=== PATIENT | female | born 1970 | race African-American/Black ===

== ENCOUNTER 2018-08-08 14:09 | Inpatient (IN) | payer OTHER ==
[2018-08-08 17:15] VITALS: BMI 41.0
--- NOTE | 2018-08-08 17:25 | HP ---
CIWA Score Nausea/Vomitin-Mild Nausea/No Vomiting Muscle Tremors: 1-None Visible, but [place] Anxiety: 3 Agitation: 4-Moderately Restless Paroxysmal Sweats: 1-Minimal Palms Moist Orientation: 0-Oriented Tacttile Disturbances: 0-None Auditory Disturbances: 0-None Visual Disturbances: 2-Mild Sensitivity Headache: 1-Very Mild CIWA-Ar Total Score: 13 - Admission Criteria OASAS Guidelines: Admission for Medically Managed Detox: Requires at least one of the followin. CIWA greater than 12 2. Seizures within the past 24 hours 3. Delirium tremens within the past 24 hours 4. Hallucinations within the past 24 hours 5. Acute intervention needed for co occurring medical disorder 6. Acute intervention needed for co occurring psychiatric disorder 7. Severe withdrawal that cannot be handled at a lower level of care (continued vomiting, continued diarrhea, abnormal vital signs) requiring intravenous medication and/or fluids 8. Admission ROS [facility] Allergies/Adverse Reactions: Allergies Allergy/AdvReac Type Severity Reaction Status Date / Time ibuprofen [From Motrin] AdvReac Verified 08/08/18 18:19 ketorolac [From Toradol] AdvReac Verified 08/08/18 18:19 shellfish derived AdvReac Verified 08/08/18 18:19 strawberry AdvReac Verified 08/08/18 18:19 History of Present Illness: patient here requesting detox from etoh use , reports 1 case of beer/day x 1 month , prior 6-year sobriety , reports relapse after " stress " , reports diarrhea and tremors if not drinking , abdominal cramps , loss of appetite, latest use this morning , starts drinking upon awakening , + blackouts in the past , denies seizures, denies falls . first age of use 15 , prior detox many years ago pt also claoms heroin use " morphine pills , claims 1 bag occasionally utox + thc, cocaine , bar cocaine : daily x 3 weeks , " people just give it to me " cannabis use : daily since age 14 tobacco : 09/01 ppd , does not want nrt pmhx : asthma since childhood ( [place], [place] ) , htn , heart murmur since childhood pshx : tonsillectomy , lap ovarian cyst , left knee surgery ACL/ MCL and meniscal tear 2013 after injury fall down stairs psych : bipolar d/o , depression meds : thinks Haldol , did not bring any lmp 1 mo ago upt neg [place]i 0.000 SHx : lives alone , 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 on parole x 1 year for assault meds : verified with [facility] [phone] latest filled 07/18/18 Amlodipine 10 mg qd , Lisinopril 20 mg q d . Exam Limitations: No Limitations - Ebola screening Have you traveled outside of the country in the last 21 days: No (N) Have you had contact with anyone from an Ebola affected area: No Have you been sick,other than usual withdrawal symptoms: No Do you have a fever: No - Review of Systems Constitutional: See HPI EENT: reports: Other (glasses) Respiratory: reports: No Symptoms reported Cardiac: reports: No Symptoms Reported GI: reports: No Symptoms Reported : reports: No Symptoms Reported Musculoskeletal: reports: Back Pain, Joint Pain Integumentary: reports: No Symptoms Reported Neuro: reports: Headache Endocrine: reports: No Symptoms Reported Psychiatric: reports: Orientated x3 ( bipolar d/o , manic depressive) Patient History - Smoking Cessation Smoking history: Current every day smoker Have you smoked in the past 12 months: Yes Aproximately how many cigarettes per day: 5 Hx Chewing Tobacco Use: No Initiated information on smoking cessation: No - Substances Abused Alcohol Route: Oral Frequency: Daily Amount used: 12 CANS OF BEER DAILY Age of first use: 15 Date of Last Use: 08/08/18 Cocaine Route: Smoking Frequency: Daily Amount used: $20 Age of first use: 31 Date of Last Use: 08/07/18 Marijuana/Hashish Route: Smoking Frequency: Daily Amount used: $50-$60 Age of first use: 14 Date of Last Use: 08/08/18 Family Disease History - Family Disease History Family Disease History: Other: Father (deported ), Mother (d. murdered) Other Family History: aunt- sarcoidosis Admission Physical Exam S - Vital Signs Vital Signs: Vital Signs - 24 hr 08/08/18 17:11 Temperature 98.0 F Pulse Rate 95 H Respiratory 19 Rate Blood Pressure 123/69 - Physical General Appearance: Yes: Mild Distress, Anxious HEENTM: Yes: Hearing grossly Normal, Normocephalic, Normal Voice Respiratory: Yes: Chest Non-Tender, Lungs Clear, Normal Breath Sounds Neck: Yes: No masses,lesions,Nodules, Trachea in good position Breast: Yes: Breast Exam Deferred Cardiology: Yes: Regular Rhythm, Regular Rate, S1, S2 Abdominal: Yes: Non Tender Genitourinary: Yes: Within Normal Limits Back: Yes: Normal Inspection Musculoskeletal: Yes: Gait Steady, Joint Stiffness Extremities: Yes: Normal Capillary Refill Neurological: Yes: Fully Oriented, Motor Strength 5/5 - Diagnostic (1) Alcohol dependence Current Visit: Yes Status: Acute Qualifiers: Substance use status: in withdrawal (2) Nicotine dependence Current Visit: Yes Status: Chronic Qualifiers: Nicotine product type: cigarettes (3) Cocaine dependence Current Visit: Yes Status: Chronic Qualifiers: Substance use status: uncomplicated Qualified Code(s): F14.20 - Cocaine dependence, uncomplicated (4) Cannabis dependence Current Visit: Yes Status: Chronic BHS Breath Alcohol Content Breath Alcohol Content: 0 Urine Pregancy Test - Result Urine Test Results: Negative- NO Line Present Urine Drug Screen - Results Drug Screen Negative: No Urine Drug Screen Results: THC-Marijuana, NAYE-Cocaine, BAR-Barbiturates
[2018-08-08] MEDS ORDERED: chlordiazePOXIDE HCL 25 MG CAPSULE PO PRN (17:40)
[2018-08-08] MEDS ORDERED: MAG HYDROX/AL HYDROX/SIMETH 30 ML UNIT-DOSE CUP PO PRN (17:40)
[2018-08-08] MEDS ORDERED: P-EPHED 60MG/TRIPROLIDI 2.5MG TABLET PO PRN (17:40)
[2018-08-08] MEDS ORDERED: MAGNESIUM HYDROX 2400MG/30ML ORAL SUSPENSION 30 ML CUP PO PRN (17:40)
[2018-08-08] MEDS ORDERED: guaiFENesin/D-METHORPHAN HB 10 ML UNIT-DOSE CUPS PO PRN (17:40)
[2018-08-08] MEDS ORDERED: LOPERAMIDE HCL 2 MG CAPSULE PO PRN (17:40)
[2018-08-08] MEDS ORDERED: MENTHOL/PHENOL 1 EACH UD MM PRN (17:40)
[2018-08-08] MEDS ORDERED: IBUPROFEN 400 MG TABLET (FP) PO PRN (17:40)
[2018-08-08] MEDS ORDERED: MAGNESIUM CITRATE 300 ML BOTTLE PO PRN (17:40)
[2018-08-08] MEDS ORDERED: ACETAMINOPHEN 325 MG TABLET (FP) PO PRN (17:40)
[2018-08-08] MEDS ORDERED: ALBUTEROL SO4 0.083% IH SOL 2.5 MG/3 ML VIAL.NEB. NEB PRN (18:39)
[2018-08-08] MEDS ORDERED: ALBUTEROL SO4 8 GM HFA INHALER IH PRN (18:39)
[2018-08-08] MEDS ORDERED: AMMONIUM LACTATE 12% LOTION 225 GM BOTTLE TP PRN (20:31)
[2018-08-08] MEDS ORDERED: COLLOIDAL OATMEAL 1 BAR EACH TP PRN (20:35)
[2018-08-08] MEDS ORDERED: MELATONIN 5 MG TABLETS PO PRN (22:00)
[2018-08-08] MEDS: chlordiazePOXIDE HCL 25 MG CAPSULE PO SCH (22:11)
[2018-08-08] MEDS: MINERAL OIL/PETROLAT/WATER TOPICAL CREAM 113 GM JAR TP SCH (22:13)
[2018-08-08] MEDS: THIAMINE HCL 100 MG TABLET (FP) PO SCH (22:13)
[2018-08-09] MEDS: chlordiazePOXIDE HCL 25 MG CAPSULE PO SCH ×4 (05:25→22:30)
--- NOTE | 2018-08-09 07:35 | CONSULT ---
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 Substance Abuse History: Smoking history: Current every day smoker. Have you smoked in the past 12 months: Yes. Aproximately how many cigarettes per day: 5. Hx Chewing Tobacco Use: No. Initiated information on smoking cessation: No. - Substances Abused. Alcohol. Route: Oral. Frequency: Daily. Amount used: 12 CANS OF BEER DAILY. Age of first use: 15. Date of Last Use: . Cocaine. Route: Smoking. Frequency: Daily. Amount used: $20. Age of first use: 31. Date of Last Use: 08/07/18. Marijuana/Hashish. Route: Smoking. Frequency: Daily. Amount used: $50-$60. Age of first use: 14. Date of Last Use: 08/08/18 Medical History: Obesity, heart murmur history, HTN, Asthma, Psychiatric History: Patient reports history of depression and anxiety, reports Bipolar Disorder history, history of suicidal attempts by cutting her forearms, domi applyed reports most recent suicidal attempt on about more then 5 years ago, denies suicidal history since then, currently stable on: Haldol 2mg po qhs. Cogentin 1mg po qhs Physical/Sexual Abuse/Trauma History: Denies Additional Comment: Haldol 2mg po qhs. Cogentin 1mg po qhs Mental Status Exam - Mental Status Exam Alert and Oriented to: Person Cognitive Function: Fair Patient Appearance: Unkempt Mood: Sad Affect: Normal Range Patient Behavior: Cooperative Speech Pattern: Delayed Voice Loudness: Mildly Soft/Quiet Thought Process: Circumstantial, Goal Oriented Thought Disorder: Being Controlled Hallucinations: Denies Suicidal Ideation: Denies Homicidal Ideation: Denies Sleep: Difficulty falling asleep Appetite: Weight gain Muscle strength/Tone: Mild Hypotonicity Gait/Station: Shuffling Additional Comments: Haldol 2mg po qhs. Cogentin 1mg po qhs Psychiatric Findings - Problem List ([place] 1, 2,3) (1) Drug-induced mood disorder Current Visit: Yes Status: Acute (2) Alcohol dependence Current Visit: Yes Status: Acute Qualifiers: Substance use status: in withdrawal (3) Cannabis dependence Current Visit: Yes Status: Chronic (4) Cocaine dependence Current Visit: Yes Status: Chronic Qualifiers: Substance use status: uncomplicated Qualified Code(s): F14.20 - Cocaine dependence, uncomplicated (5) Nicotine dependence Current Visit: Yes Status: Chronic Qualifiers: Nicotine product type: cigarettes - Initial Treatment Plan Initial Treatment Plan: Haldol 2mg po qhs. Cogentin 1mg po qhs
[2018-08-09] MEDS ORDERED: HALOPERIDOL 1 MG TABLET (FP) PO PRN (08:48)
[2018-08-09] MEDS ORDERED: amLODIPine BESYLATE 5 MG TABLET (FP) PO SCH (10:00)
[2018-08-09] MEDS: MINERAL OIL/PETROLAT/WATER TOPICAL CREAM 113 GM JAR TP SCH ×2 (10:52→22:31)
[2018-08-09] MEDS: PRENATAL VITAMINS W/ FOLIC ACID TABLET (FP) PO SCH (10:52)
[2018-08-09] MEDS: LISINOPRIL 20 MG TABLET (FP) PO SCH (10:52)
[2018-08-09] MEDS: amLODIPine BESYLATE 10 MG TABLET (FP) PO SCH (10:52)
[2018-08-09 11:15] LABS: HEMATOCRIT 39.4 % (32.4-45.2); HEMOGLOBIN 12.6 GM/dL (10.7-15.3); MCH 29.8 pg (25.7-33.7); MEAN CELL VOLUME 93.1 fl (80-96); MEAN PLT VOLUME 8.8 fl (7.5-11.1); PLATELET COUNT 232 K/MM3 (134-434); RBC 4.23 M/mm3 (3.60-5.2); RDW 14.4 % (11.6-15.6); WHITE BLOOD COUNT 7.3 K/mm3 (4.0-10.0)
[2018-08-09 11:25] LABS: ALBUMIN 3.3 g/dl (3.4-5.0); ALK PHOS 101 U/L (45-117); ANION GAP 8 MMOL/L (8-16); BILIRUBIN,TOTAL 0.2 mg/dL (0.2-1); BLOOD UREA NITROGEN 5 mg/dL (7-18); CALCIUM 8.4 mg/dL (8.5-10.1); CHLORIDE 105 mmol/L (98-107); CO2 27 mmol/L (21-32); CREATININE 0.9 mg/dL (0.55-1.3); GLUCOSE,RANDOM 85 mg/dL (74-106); POTASSIUM 3.9 mmol/L (3.5-5.1); SGOT/AST 10 U/L (15-37); SGPT/ALT 23 U/L (13-61); SODIUM 140 mmol/L (136-145); TOT PROT 6.4 g/dl (6.4-8.2)
--- NOTE | 2018-08-09 13:44 | PN ---
[facility] CIWA - CIWA Score Nausea/Vomitin-No Nausea/No Vomiting Muscle Tremors: 3 Anxiety: 3 Agitation: 3 Paroxysmal Sweats: 3 Orientation: 0-Oriented Tacttile Disturbances: 0-None Auditory Disturbances: 0-None Visual Disturbances: 0-None Headache: 0-None Present CIWA-Ar Total Score: 12 S Progress Note (SOAP) Subjective: agitation sweats shakes interrupted sleep body aches heart burn Objective: 08/09/18 13:44 Vital Signs Temperature 97.5 F L 08/09/18 13:25 Pulse Rate 81 08/09/18 13:25 Respiratory Rate 18 08/09/18 13:25 Blood Pressure 119/75 08/09/18 13:25 O2 Sat by Pulse Oximetry (%) Laboratory Tests 08/09/18 08/09/18 08/09/18 07:30 07:30 07:30 WBC 7.3 RBC 4.23 Hgb 12.6 Hct 39.4 MCV 93.1 MCH 29.8 MCHC 32.0 RDW 14.4 Plt Count 232 MPV 8.8 Sodium 140 Potassium 3.9 Chloride 105 Carbon Dioxide 27 Anion Gap 8 BUN 5 L Creatinine 0.9 Creat Clearance w eGFR > 60 Random Glucose 85 Calcium 8.4 L Total Bilirubin 0.2 AST 10 L ALT 23 Alkaline Phosphatase 101 Total Protein 6.4 Albumin 3.3 L RPR Titer Nonreactive aaox3 ambulating no acute distress Assessment: 08/09/18 13:44 withdrawal sx Plan: continue detox increase fluids zantac 150mg po bid
[2018-08-09] MEDS ORDERED: BENZTROPINE MESYLATE 1 MG TABLET (FP) PO SCH (22:00)
[2018-08-09] MEDS: RANITIDINE HCL 150 MG TABLET (FP) PO SCH (22:28)
[2018-08-09] MEDS: THIAMINE HCL 100 MG TABLET (FP) PO SCH (22:28)
[2018-08-10] MEDS: chlordiazePOXIDE HCL 25 MG CAPSULE PO SCH ×3 (06:33→17:52)
[2018-08-10] MEDS: LISINOPRIL 20 MG TABLET (FP) PO SCH (10:19)
[2018-08-10] MEDS: RANITIDINE HCL 150 MG TABLET (FP) PO SCH (10:19)
[2018-08-10] MEDS: PRENATAL VITAMINS W/ FOLIC ACID TABLET (FP) PO SCH (10:19)
[2018-08-10] MEDS: amLODIPine BESYLATE 10 MG TABLET (FP) PO SCH (10:19)
[2018-08-10] MEDS: MINERAL OIL/PETROLAT/WATER TOPICAL CREAM 113 GM JAR TP SCH (10:20)
--- NOTE | 2018-08-10 13:48 | PN ---
[facility] CIWA - CIWA Score Nausea/Vomitin-No Nausea/No Vomiting Muscle Tremors: 3 Anxiety: 3 Agitation: 2 Paroxysmal Sweats: 2 Orientation: 0-Oriented Tacttile Disturbances: 0-None Auditory Disturbances: 0-None Visual Disturbances: 0-None Headache: 0-None Present CIWA-Ar Total Score: 10 S Progress Note (SOAP) Subjective: low back pain sweats irritable agitation interrupted sleep left knee pain Objective: 08/10/18 13:47 Vital Signs Temperature 98.0 F 08/10/18 09:19 Pulse Rate 72 08/10/18 09:19 Respiratory Rate 18 08/10/18 09:19 Blood Pressure 146/82 08/10/18 09:19 O2 Sat by Pulse Oximetry (%) Laboratory Tests 08/09/18 08/09/18 08/09/18 07:30 07:30 07:30 WBC 7.3 RBC 4.23 Hgb 12.6 Hct 39.4 MCV 93.1 MCH 29.8 MCHC 32.0 RDW 14.4 Plt Count 232 MPV 8.8 Sodium 140 Potassium 3.9 Chloride 105 Carbon Dioxide 27 Anion Gap 8 BUN 5 L Creatinine 0.9 Creat Clearance w eGFR > 60 Random Glucose 85 Calcium 8.4 L Total Bilirubin 0.2 AST 10 L ALT 23 Alkaline Phosphatase 101 Total Protein 6.4 Albumin 3.3 L RPR Titer Nonreactive aaox3 ambulating no acute distress Assessment: 08/10/18 13:47 withdrawal sx Plan: continue detox increase fluids lidocaine patch to lower back ayo bandage to apply to left knee for stability
[2018-08-10] MEDS ORDERED: LIDOCAINE 5% TOPICAL PATCH TP ONE (14:05)
[2018-08-10] MEDS ORDERED: HALOPERIDOL 5 MG TABLET (FP) PO PRN (16:11)
--- NOTE | 2018-08-10 16:22 | PN ---
Psychiatric Progress Note Vital Signs: Vital Signs Period Temp Pulse Resp BP Sys/[place] Pulse Ox Last 24 Hr 96.6 F-98.0 F 72-86 18-20 113-152/63-93 Date of Session: 08/10/18 Chief Complaint:: Insomnia, anxiety HPI: Patient reports did not sleep well after taking Haldol 2mg po qhs. Reports taking prior to admission Haldol 5mg p[o qhs Current Medications: Active Medications Generic Name Dose Route Start Last Admin Trade Name Freq PRN Reason Stop Dose Admin Acetaminophen 650 mg 08/08/18 17:40 Tylenol - PO Q4H PRN FEVER Al Hydroxide/Mg Hydroxide 30 ml 08/08/18 17:40 Mylanta Oral Suspension - PO Q6H PRN DYSPEPSIA Albuterol Sulfate 1 amp 08/08/18 18:39 Ventolin 0.083% Nebulizer Soln - NEB Q4H PRN SHORT OF BREATH/WHEEZING Albuterol Sulfate 2 puff 08/08/18 18:39 Ventolin Hfa Inhaler - IH Q4H PRN SHORT OF BREATH/WHEEZING Amlodipine Besylate 10 mg 08/09/18 10:00 08/10/18 10:19 Norvasc - PO 10 mg DAILY KRISTA Administration Benztropine Mesylate 1 mg 08/09/18 22:00 08/09/18 22:29 Cogentin - PO 1 mg HS KRISTA Administration Chlordiazepoxide HCl 25 mg 08/09/18 23:00 08/10/18 10:20 Librium - PO 08/10/18 17:01 Not Given Q0P-HCM KRISTA Chlordiazepoxide HCl 15 mg 08/10/18 23:00 Librium - PO 08/11/18 17:01 C9L-AGH KRISTA Chlordiazepoxide HCl 25 mg 08/08/18 17:40 Librium - PO 08/11/18 17:39 Q4H PRN WITHDRAWAL(CONT SUBST) Chlordiazepoxide HCl 10 mg 08/11/18 23:00 Librium - PO 08/12/18 17:01 [id number]-ARK KRISTA Colloidal Oatmeal 1 applic 08/08/18 20:35 08/09/18 10:51 Aveeno Soap - TP 1 bar DAILY PRN Administration HYGEINE Eucalyptus/Menthol/Phenol/Sorbitol 1 each 08/08/18 17:40 Cepastat Lozenge - MM Q4H PRN SORE THROAT Guaifenesin 10 ml 08/08/18 17:40 Robitussin Dm - PO Q6H PRN COUGH Haloperidol 5 mg 08/10/18 16:11 Haldol - PO HS PRN AGITATION Lactic Acid 1 applic 08/08/18 20:31 Lac-Hydrin 12 TP Q12H PRN DRY SKIN Lidocaine 1 patch 08/11/18 10:00 Lidoderm Patch - TP DAILY KRISTA Lisinopril 20 mg 08/09/18 10:00 08/10/18 10:19 Prinivil PO 20 mg DAILY KRISTA Administration Loperamide HCl 4 mg 08/08/18 17:40 Imodium - PO Q6H PRN DIARRHEA Magnesium Citrate 300 ml 08/08/18 17:40 Citroma - PO Q48H PRN CONSTIPATION Magnesium Hydroxide 30 ml 08/08/18 17:40 Milk Of Magnesia - PO DAILY PRN CONSTIPATION Melatonin 5 mg 08/08/18 22:00 08/08/18 22:12 Melatonin PO 5 mg HS PRN Administration INSOMNIA Miscellaneous 1 each 08/10/18 22:00 Lidoderm Patch Removal MC DAILY@2200 KRISTA Multi-Ingredient Lotion 1 applic 08/08/18 22:00 08/10/18 10:20 Eucerin (Small Jar) - TP 1 applic BID KRISTA Administration Multivit/Folic Acid/Iron 1 tab 08/09/18 10:00 08/10/18 10:19 Vitamins (Sjr) - PO 1 tab DAILY KRISTA Administration Pseudoephedrine/Triprolidine 1 combo 08/08/18 17:40 Actifed - PO TID PRN NASAL CONGESTION Ranitidine HCl 150 mg 08/09/18 22:00 08/10/18 10:19 Zantac - PO 150 mg BID KRISTA Administration Thiamine HCl 100 mg 08/08/18 22:00 08/09/18 22:28 Vitamin B1 - PO 100 mg HS KRISTA Administration Medication(s) Change(s): Haldol 5mg p[o qhs Mental Status Exam - Mental Status Exam Alert and Oriented to: Person Cognitive Function: Fair Patient Appearance: Well Groomed Mood: Anxious Affect: Constricted Patient Behavior: Cooperative Speech Pattern: Appropriate Voice Loudness: Normal Thought Process: Goal Oriented Thought Disorder: Being Controlled Hallucinations: Denies Suicidal Ideation: Denies Homicidal Ideation: Denies Insight/Judgement: Fair Sleep: Difficulty falling asleep Appetite: Weight gain Muscle strength/Tone: Normal Gait/Station: Normal Additional Comments: Haldol 5mg p[o qhs Psychiatric Treatment Plan - Problem List (1) Drug-induced mood disorder Current Visit: Yes (2) Alcohol dependence Current Visit: Yes Qualifiers: Substance use status: in withdrawal (3) Cannabis dependence Current Visit: Yes (4) Cocaine dependence Current Visit: Yes Qualifiers: Substance use status: uncomplicated Qualified Code(s): F14.20 - Cocaine dependence, uncomplicated (5) Nicotine dependence Current Visit: Yes Qualifiers: Nicotine product type: cigarettes Initial treatment plan: Haldol 5mg p[o qhs
[2018-08-10 18:38] VITALS: BP 119/59; PULSE 82; TEMP 98.2
--- NOTE | 2018-08-10 21:41 | DS ---
[facility] Detox Discharge Summary Admission Date: 08/08/18 Discharge Date: 08/10/18 - History Present History: Alcohol Dependence, Cannabis Dependence, Cocaine Dependence, Sedative Dependence Pertinent Past History: pt admitted for alcohol detox. also used morphine for the prior 2 weeks. Pt leaving early b/c she prefers to be in a therapeutic community to the detox and is planning on going to [facility] tomorrow. - Physical Exam Results Vital Signs: Vital Signs Temperature 98.2 F 08/10/18 18:37 Pulse Rate 82 08/10/18 18:37 Respiratory Rate 18 08/10/18 18:37 Blood Pressure 119/59 L 08/10/18 18:37 O2 Sat by Pulse Oximetry (%) - Treatment Hospital Course: Detox Protocol Followed - Medication Discharge Medications: Ambulatory Orders Albuterol Sulfate Inhaler - [Ventolin Hfa Inhaler -] 2 inh PO Q4H PRN 08/08/18 Amlodipine Besylate 5 mg PO DAILY 08/08/18 Lisinopril 20 mg PO DAILY 08/08/18 Benztropine Mesylate [Cogentin -] 1 mg PO HS #30 tablet 08/09/18 Haloperidol [Haldol -] 2 mg PO HS PRN #30 tablet 08/09/18 Albuterol Sulfate Inhaler - [Ventolin HFA Inhaler -] 2 puff IH Q4H PRN #1 inhaler 08/10/18 Amlodipine Besylate [Norvasc -] 10 mg PO DAILY #30 tablet 08/10/18 Lisinopril [Prinivil] 20 mg PO DAILY #30 tablet 08/10/18 - AMA Did Patient Leave Against Medical Advice: Yes
[2018-08-10] MEDS ORDERED: LIDOCAINE PATCH REMOVAL MC SCH (22:00)
[2018-08-10] MEDS ORDERED: chlordiazePOXIDE 5 MG CAPSULE PO SCH (23:00)
[2018-08-11] MEDS ORDERED: LIDOCAINE 5% TOPICAL PATCH TP SCH (10:00)
[2018-08-11] MEDS ORDERED: chlordiazePOXIDE HCL 10 MG CAPSULE PO SCH (23:00)
== END 2018-08-10 21:49 | disposition left against medical advice (07) | DRG 770 ==
LOC: YASAS 14:09 → Y6N 19:20
PROC: HZ2ZZZZ Detoxification Services for Substance Abuse Treatment (ICD-10-PCS; principal; 2018-08-08)
DX: F10.20 Alcohol dependence, uncomplicated (principal); F13.20 Sedative, hypnotic or anxiolytic dependence, uncomplicated; F14.10 Cocaine abuse, uncomplicated; F12.20 Cannabis dependence, uncomplicated; F17.210 Nicotine dependence, cigarettes, uncomplicated; F19.24 Other psychoactive substance dependence with psychoactive substance-induced mood disorder; F31.9 Bipolar disorder, unspecified; I10 Essential (primary) hypertension; J45.909 Unspecified asthma, uncomplicated; R01.1 Cardiac murmur, unspecified; E66.9 Obesity, unspecified; Z68.41 Body mass index [BMI] 40.0-44.9, adult; Z91.5 Personal history of self-harm
CPT/HCPCS: 36415; 80053; 85027; 86593